=== PATIENT | female | born 1995 | race Caucasian/White ===

== ENCOUNTER 2016-08-19 17:30 | Emergency (ER) | payer OTHER ==
[~2016-08-19] VITALS: Ht 172.7 cm; Wt 47.6 kg
[~2016-08-19 17:30] MED LIST: ADV500INH INH; PERC5TAB6 PO; PROA1AER INH; XANA0.25 PO; ZOLO50TA PO
[2016-08-19] MEDS ORDERED: XANA2TAB2 PO (17:50)
[2016-08-19] MEDS ORDERED: XANA0.5T PO (20:28)
[2016-08-19] MEDS ORDERED: ALPRAZolam 0.25 MG TAB PO ONE ×2 (20:30)
[2016-08-19 20:40] VITALS: BP 110/62
== END 2016-08-19 20:41 | disposition home or self-care (01) ==
LOC: M ED 19:35
DX: F41.9 Anxiety disorder, unspecified (principal); J45.909 Unspecified asthma, uncomplicated; F33.9 Major depressive disorder, recurrent, unspecified; Z79.899 Other long term (current) drug therapy; F17.210 Nicotine dependence, cigarettes, uncomplicated

== ENCOUNTER 2017-01-06 18:34 | Emergency (ER) | payer MEDICAID, OTHER ==
[~2017-01-06] VITALS: Ht 172.7 cm; Wt 47.7 kg
[~2017-01-06 18:34] MED LIST changes: +PERC5TAB12 PO; -PERC5TAB6 PO; -PROA1AER INH; +PROAAER10 INH; +XANA0.5T PO; +XANA2TAB2 PO
[2017-01-06 18:35] VITALS: BP 134/87
[2017-01-06] MEDS ORDERED: IBUP-1022 PO (19:55)
[2017-01-06] MEDS ORDERED: ROBA500T PO (19:55)
[2017-01-06] MEDS ORDERED: ZOLO100T PO (19:55)
[2017-01-06] MEDS ORDERED: AUGM875T28 PO (19:57)
[2017-01-06] MEDS ORDERED: IBUPROFEN 600 MG TAB PO ONE (20:00)
[2017-01-06] MEDS ORDERED: METHOCARBAMOL 750 MG TAB PO ONE (20:00)
[2017-01-06] MEDS ORDERED: ALBUTEROL 90 MCG/ACT 8GM HFA INHALER INH ONE (20:00)
== END 2017-01-06 20:10 | disposition home or self-care (01) ==
LOC: M ED 18:34
DX: S40.811A Abrasion of right upper arm, initial encounter (principal); S40.812A Abrasion of left upper arm, initial encounter; S80.811A Abrasion, right lower leg, initial encounter; S80.812A Abrasion, left lower leg, initial encounter; S40.021A Contusion of right upper arm, initial encounter; S40.022A Contusion of left upper arm, initial encounter; S80.11XA Contusion of right lower leg, initial encounter; S80.12XA Contusion of left lower leg, initial encounter; S81.812A Laceration without foreign body, left lower leg, initial encounter; W16.112A Fall into natural body of water striking water surface causing other injury, initial encounter; Y92.828 Other wilderness area as the place of occurrence of the external cause; Y93.89 Activity, other specified; Y99.8 Other external cause status; J45.909 Unspecified asthma, uncomplicated; F41.9 Anxiety disorder, unspecified; F33.9 Major depressive disorder, recurrent, unspecified; F19.10 Other psychoactive substance abuse, uncomplicated; Z79.899 Other long term (current) drug therapy; Z79.51 Long term (current) use of inhaled steroids; F17.210 Nicotine dependence, cigarettes, uncomplicated

== ENCOUNTER → 2017-02-15 | Outpatient (REF) | payer MEDICAID, OTHER ==
[~2017-02-15] MED LIST changes: +AUGM875T28 PO; +IBUP-1022 PO; +ROBA500T PO; +ZOLO100T PO
== END ==
LOC: M SFHCLERA 18:23
PROVIDERS: ATTEND Nurse Practitioner Family
DX: R30.0 Dysuria (principal); J02.9 Acute pharyngitis, unspecified

== ENCOUNTER → 2017-05-08 | Outpatient (REF) | payer MEDICAID | LOC: M LAB REF 16:59 | PROVIDERS: ATTEND Family Medicine Addiction Medicine | DX: F11.21 Opioid dependence, in remission (principal); Z20.2 Contact with and (suspected) exposure to infections with a predominantly sexual mode of transmission ==

== ENCOUNTER → 2017-05-29 | Outpatient (REF) | payer MEDICAID, OTHER | LOC: M LAB REF 12:43 | DX: F11.21 Opioid dependence, in remission (principal) ==

== ENCOUNTER → 2017-06-12 | Outpatient (REF) | payer MEDICAID, OTHER ==
[2017-06-17 14:12] LABS: AMPHETAMINE SCREEN, URINE Negative ng/mL (Cutoff=1000); BARBITURATES SCREEN, URINE Negative ng/mL (Cutoff=200); BENZODIAZEPINES, URINE SCREEN Negative ng/mL (Cutoff=200); CANNABINOID SCREEN, URINE See Final Results ng/mL (Cutoff=20); CANNABINOID, URINE Positive (Cutoff=20); CARBOXY THC (GC/MS) >300 ng/mL (Cutoff=10); COCAINE SCREEN, URINE Negative ng/mL (Cutoff=300); CREATININE, URINE 216.4 mg/dL (20.0-300.0); FENTANYL URINE SCREEN Negative pg/mL (Cutoff=2000); METHADONE, URINE SCREEN Negative ng/mL (Cutoff=300); NALOXONE RESULT Positive (.); OPIATE SCREEN, URINE Negative ng/mL (Cutoff=300); OXYCODONE, SCREEN, URINE Negative ng/mL (Cutoff=100); PCP SCREEN, URINE Negative ng/mL (Cutoff=25); SPECIFIC GRAVITY, URINE 1.025 (.); URINE BUPRENORPHINE Positive (.); URINE BUPRENORPHINE Positive (Cutoff=10); URINE BUPRENORPHINE See Final Results ng/mL (Cutoff=10); URINE BUPRENORPHINE CONFIRM 684 ng/mL (Cutoff=10); URINE NORBUPRENORPHINE Positive (.); URINE NORBUPRENORPHINE CONFIRM >1000 ng/mL (Cutoff=10); pH, URINE 5.7 (4.5-8.9)
== END ==
LOC: M LAB REF 17:28
DX: F11.21 Opioid dependence, in remission (principal)

== ENCOUNTER → 2017-06-19 | Outpatient (REF) | payer MEDICAID, OTHER | LOC: M LAB REF 19:06 | DX: F11.21 Opioid dependence, in remission (principal) ==

== ENCOUNTER → 2017-06-28 | Outpatient (REF) | payer OTHER, MEDICAID | LOC: M LAB REF 19:28 | DX: F11.21 Opioid dependence, in remission (principal) ==

== ENCOUNTER → 2017-07-02 | Outpatient (REF) | payer OTHER, MEDICAID | LOC: M LAB REF 13:15 | DX: F11.21 Opioid dependence, in remission (principal) ==

== ENCOUNTER → 2017-07-03 | Outpatient (REF) | payer OTHER, MEDICAID | LOC: M LAB REF 19:27 | DX: F11.21 Opioid dependence, in remission (principal) ==

== ENCOUNTER 2018-06-23 11:40 | Emergency (ER) | payer MEDICAID, OTHER ==
[~2018-06-23] VITALS: Ht 172.7 cm; Wt 47.7 kg
[2018-06-23] MEDS ORDERED: MORPHINE 4 MG/ML 1ML VIAL/SYRINGE (J2270) IV PRN (14:00)
[2018-06-23] MEDS ORDERED: ONDANSETRON 4MG/2ML VIAL (J2405) IV ONE (14:00)
[2018-06-23] MEDS ORDERED: NS 1,000 ML IV ONE (14:00)
[2018-06-23] MEDS ORDERED: NORCO, ANEXSIA 5/325MG TABLET (HYDROcodone/ACETAMINOPHEN) PO ONE (15:00)
[2018-06-23] MEDS ORDERED: GABA600T4 PO (16:28)
[2018-06-23] MEDS ORDERED: ZOLO100T PO (16:28)
[2018-06-23] MEDS ORDERED: MACR100C43 PO (16:28)
[2018-06-23 16:44] VITALS: BP 104/70
[2018-06-23] MEDS ORDERED: VENTAER INH (16:45)
--- NOTE | 2018-06-23 18:14 | REP ---
Pelvic sonography: History: Left-sided pelvic pain. Findings: Transabdominal and transvaginal scanning are performed. Visualized bladder quintero are smooth. Uterine dimensions are 7.7 x 3.1 x 3.7 cm. Endometrial echo 0.2 cm thick. Nabothian cysts are seen. A small quantity of endocervical fluid is seen. No focal uterine mass is seen. There is a trace of fluid in the cul-de-sac. Normal right ovary is seen measuring 3.0 x 1.7 x 2.0 cm. Left ovary measures 3.9 x 1.8 x 2.0 cm. There is a 1.9 x 1.6 x 1.1 cm cyst in the left ovary consistent with a follicle. Doppler flow is normal in both ovaries. Resistive indices by Doppler are 0.44 on the right and 0.46 on the left. Impression: No significant abnormality. 1.9 cm follicle cyst left ovary. Trace of fluid in the cul-de-sac. A Nabothian cyst. Electronically Signed by Quoc Valdez MD 06/24/2018 08:07 A
== END 2018-06-23 16:46 | disposition home or self-care (01) ==
LOC: M ED 11:40
DX: N39.0 Urinary tract infection, site not specified (principal); N83.02 Follicular cyst of left ovary; Z76.0 Encounter for issue of repeat prescription; J45.909 Unspecified asthma, uncomplicated; F19.10 Other psychoactive substance abuse, uncomplicated; F41.9 Anxiety disorder, unspecified; F32.9 Major depressive disorder, single episode, unspecified; F17.210 Nicotine dependence, cigarettes, uncomplicated; Z79.899 Other long term (current) drug therapy; Z79.51 Long term (current) use of inhaled steroids

== ENCOUNTER 2018-09-13 16:17 | Inpatient (IN) | payer OTHER ==
[~2018-09-13] VITALS: Ht 172.7 cm; Wt 60.2 kg
[~2018-09-13 16:17] MED LIST changes: +GABA600T4 PO; +MACR100C43 PO; +VENTAER INH
[2018-09-13] MEDS ORDERED: NS 1,000 ML IV ONE ×3 (16:30→22:15)
[2018-09-13] MEDS ORDERED: ALBUTEROL SULFATE 2.5 MG/0.5 ML INH NEB SOLN INH ONE (16:30)
[2018-09-13] MEDS ORDERED: IPRATROPIUM 0.5MG/ALBUTEROL 2.5MG INH SOL UD 3ML (DUONEB)(J7620) NEB ONE (16:30)
[2018-09-13 16:41] LABS: HEMATOCRIT 41.8 % (36.0-47.0); HEMOGLOBIN 12.8 g/dl (12.0-15.5); MEAN CORPUSCULAR HEMOGLOBIN 28.8 pg (27.0-33.0); MEAN CORPUSCULAR HGB CONC 30.6 g/dl (32.0-36.5); MEAN CORPUSCULAR VOLUME 93.9 fl (80.0-96.0); PLATELET COUNT, AUTOMATED 335 10^3/uL (150-450); RED BLOOD COUNT 4.45 10^6/uL (4.00-5.40); WHITE BLOOD COUNT 13.7 10^3/uL (4.0-10.0)
[2018-09-13] MEDS: MAG SULF 1GM/100ML (MAG RUN) 1 GM in APPROPRIATE DILUENT 1 EA IV SCH ×2 (16:41→17:21)
[2018-09-13 16:44] LABS: ABG BASE EXCESS -7.6 (-2.0-2.0); ABG HCO3 18.3 MEQ/L (22.0-26.0); ABG O2 SATURATION 93.4 % (95.0-99.0); ABG PARTIAL PRESSURE CO2 38.4 mmHg (35.0-45.0); ABG PARTIAL PRESSURE O2 77.7 mmHg (75.0-100.0); ABG STANDARD HCO3 18.2 MEQ/L (22.0-26.0); ABG TOTAL CO2 19.4 MEQ/L (22.0-29.0); ABG pH (ARTERIAL) 7.295 UNITS (7.350-7.450)
--- NOTE | 2018-09-13 16:50 | REP ---
Chest one-view HISTORY: Shortness of breath Comparison: 06/02/2015 A small area of atelectasis or infiltrate is present in the left lower lobe. The right lung is clear. he heart is normal in size. The pulmonary vasculature is normal in appearance. Impression: Left lower lobe atelectasis or infiltrate. Electronically Signed by Vik Morales MD 09/13/2018 04:42 P
[2018-09-13] MEDS ORDERED: SUBO4MIS SL (16:51)
[2018-09-13] MEDS ORDERED: HYDR-4517 PO (16:51)
[2018-09-13] MEDS ORDERED: LORA-674 PO (16:51)
[2018-09-13] MEDS ORDERED: BREO1INH3 INH (16:51)
[2018-09-13] MEDS ORDERED: HYDR-2808 PO (16:51)
[2018-09-13 16:59] LABS: HCG, SERUM QUALITATIVE POSITIVE (NEGATIVE)
[2018-09-13 17:13] LABS: ATYPICAL LYMPH 2 % (0-5); LYMPHOCYTES 63 % (16-52); MONOCYTES 5 % (0-8); NEUTROPHILS 29 % (35-75)
[2018-09-13 17:14] LABS: PLATELET ESTIMATE NORMAL (NORMAL)
[2018-09-13 17:26] LABS: ALBUMIN 3.8 GM/DL (3.2-5.2); ALT/SGPT 51 U/L (12-78); BILIRUBIN,DIRECT < 0.1 MG/DL (0.0-0.2); BILIRUBIN,TOTAL 0.3 MG/DL (0.2-1.0); BLOOD UREA NITROGEN 10 MG/DL (7-18); CALCIUM LEVEL 8.6 MG/DL (8.5-10.1); CARBON DIOXIDE LEVEL 17 MEQ/L (21-32); CHLORIDE LEVEL 104 MEQ/L (98-107); CPK CREATINE PHOSPHOKINASE 112 U/L (26-192); CREATININE FOR GFR 0.92 MG/DL (0.55-1.30); GLOMERULAR FILTRATION RATE > 60.0 (>60); GLUCOSE, FASTING 206 MG/DL (70-100); MB/CK RELATIVE INDEX 1.07 (< OR =4); NT-PRO BNP 225 PG/ML (<125); POTASSIUM SERUM 4.4 MEQ/L (3.5-5.1); SODIUM LEVEL 138 MEQ/L (136-145); THYROID STIMULATING HORMONE 0.869 uIU/ML (0.358-3.740); THYROXINE (T4) 10.9 UG/DL (4.5-12.0); TOTAL PROTEIN 7.5 GM/DL (6.4-8.2); TROPONIN I < 0.02 NG/ML (< 0.10)
[2018-09-13 17:35] LABS: INFLUENZA A AMPLIFICATION NEGATIVE (NEGATIVE); INFLUENZA B AMPLIFICATION NEGATIVE (NEGATIVE)
[2018-09-13 18:06] LABS: HCG, SERUM QUANTITATIVE 35 MIU/ML
[2018-09-13] MEDS ORDERED: GABA600T4 PO (18:26)
[2018-09-13] MEDS ORDERED: SERT-138 PO (18:27)
[2018-09-13] MEDS ORDERED: IPRATROPIUM 0.5MG/ALBUTEROL 2.5MG INH SOL UD 3ML (DUONEB)(J7620) NEB PRN (19:00)
[2018-09-13 19:01] LABS: AMPHETAMINES LEVEL URINE NEGATIVE (NEGATIVE); BARBITURATES URINE NEGATIVE (NEGATIVE); BENZODIAZEPINES URINE NEGATIVE (NEGATIVE); CANNABINOIDS URINE POSITIVE (NEGATIVE); COCAINE METABOLITE URINE NEGATIVE (NEGATIVE); METHADONE URINE NEGATIVE (NEGATIVE); OPIATES URINE POSITIVE (NEGATIVE); PHENCYCLIDINE URINE NEGATIVE (NEGATIVE)
[2018-09-13] MEDS: ALBUTEROL SULFATE 2.5 MG/0.5 ML INH NEB SOLN NEB SCH (19:03)
[2018-09-13] MEDS: NS 1,000 ML IV SCH (19:37)
[2018-09-13] MEDS: methylPREDNISolone INJ 40 MG/1 ML VIAL (J2920) IV SCH (20:00)
--- NOTE | 2018-09-13 20:29 | REPVR ---
EXAM: US First Trimester, Transabdominal EXAM DATE/TIME: 09/13/2018 5:48 PM CLINICAL HISTORY: 23 years old, female; complicated by abdominal or pelvic pain; Lower; First trimester; Gestational age or lmp: 08/16/18; ; Additional info: Respiratory failure/ abdominal pain/lactic acidosis TECHNIQUE: Imaging protocol: Real-time transabdominal obstetrical ultrasound of the maternal pelvis and a first trimester , less than 14 weeks 0 days, with image documentation. COMPARISON: No relevant prior studies available. FINDINGS: MATERNAL: Uterus: The uterus measures 9.3 cm in its cephalocaudad dimension and 5.2 x 4.8 cm in its AP and lateral dimensions transabdominal. The uterus measures 9.5 cm in its cephalocaudad dimension and 4.1 x 5.1 cm in its AP and lateral dimensions. The endometrium measures 21 mm transabdominal and 13 mm transvaginal. No intrauterine gestational sac. Cervix: Unremarkable. Right adnexa: The right ovary measures 2.5 x 3.1 x 2.9 cm and demonstrates blood flow. Left adnexa: The left ovary measures 2.1 x 2.8 x 1.4 cm and demonstrates blood flow. Intraperitoneal: No intraperitoneal free fluid. IMPRESSION: 1. Thickened endometrium with no gestational sac seen. Findings may reflect recent spontaneous AB or very early intrauterine gestation. Ectopic with decidual reaction is not excluded. Serial beta hCG levels may be of benefit for further evaluation. 2. Otherwise negative pelvic sonogram. Electronically signed by: Meet Bess On 09/13/2018 20:29:11 PM
[2018-09-13] MEDS ORDERED: KETOROLAC 30 MG/ML VIAL (J1885) IV SCH (22:00)
[2018-09-13] MEDS ORDERED: ACETAMINOPHEN TAB 650MG DOSE (2X325MG) PO PRN (22:15)
--- NOTE | 2018-09-13 22:53 | HPEPDOC ---
General Date of Admission 09/13/18 Chief Complaint The patient is a 23-year-old female admitted with a reason for visit of Resp Distress. Source: Patient, RN/, Old records History of Present Illness 23 year old female with PMH of asthma, depression/anxiety , panic attack, narcotic use disorder had a relapse of her today and used a bag of heroin earlier in the morning. She had not taken any heroin for he past 1 month, has been using suboxone form friends and used hydrocodone yesterday. She says she has a surgery scheduled for later in september for endometriosis and she wanted to come off the Suboxone. However today she did heroin. She then came to her mother's house where she was exposed to a cat that she is allergic to. After that she started having severe SOB chest tightness, panic attack and could not take in any breath and passed out. EMS was called by her mom . EMS found her to be poorly responsive with decreased respirations, pale, so had to umbu bag her. She was given narcan in field. By the time she was ekaterina to the ED she was awke but in an asthma extremis. She was given albuterol, magnesium, duonebs with improvement of her symptoms. Her labs showed severe lactic acidosis of 9.8 and ABG showed acidosis with ph of 7.29, pco2 of 38. pateint was admitted for severe asthma exacerbation with severe lactic acidosis and possible narcotic overdose. She was also found to be . Home Medications Scheduled Fluticasone/Vilanterol (Breo Ellipta 200-25 Mcg INH) 1 Each Blst.w.dev, 1 PUFF INH DAILY, (Reported) Gabapentin (Gabapentin) 600 Mg Tablet, 600 MG PO BID, (Reported) Loratadine (Loratadine) 10 Mg Tablet, 10 MG PO DAILY, (Reported) Sertraline HCl (Sertraline HCl) 100 Mg Tablet, 200 MG PO QHS, (Reported) Scheduled PRN Albuterol Sulfate (Proair Hfa) 108 Mcg/Act Aer, 2 PUFFS INH Q4H PRN for SHORTNESS OF BREATH, (Reported) Allergies Coded Allergies: No Known Allergies (Unverified , 09/13/18) Past Medical History Medical History asthma, depression/anxiety , panic attack, substance use disorder, endometriosis. Ovarian cysts Surgical History right eye cataract surgery at the age of 7years. Social History * Smoker: current smoker, less than 1 pack/day Alcohol: occationally Drugs: heroin, other (subaxone, hydocodone) A-FIB/CHADSVASC A-FIB History Current/History of A-Fib/PAF?: No Review of Systems Constitutional: Denies: Chills, Fever, Night Sweats Eyes: Denies: Pain, Vision change ENT: Reports: Sinus Congestion; Denies: Head Aches, Ear Pain, Dysphagia Skin: Denies: Rash, Lesions, Breakdown Pulmonary: Reports: Dyspnea; Denies: Cough, Pleuritic Chest Pain Cardiovascular: Reports: Chest Pain, Palpitations, Orthopnea, Lt Headedness Gastrointestinal: Denies: Nausea, Vomiting, Abdominal Pain, Diarrhea Genitourinary: Denies: Dysuria, Frequency, Incontinence, Retention Psych: Reports: Anxiety, Depression Physical Examination General Exam: Positive: Alert, Cooperative, No Acute Distress Eye Exam: Positive: Conjunctiva & lids normal, EOMI; Negative: Sclera icteric ENT Exam: Positive: Atraumatic, Mucous membr. moist/pink, Pharynx Normal Neck Exam: Positive: Supple; Negative: JVD, thyromegaly Chest Exam: Positive: Rhonchi (few distant ronchi and crackles. ), Diminished Heart Exam: Positive: Tachycardic, Regular Rhythm, Normal S1, Normal S2; Negative: Rate Normal, Bradycardic, Irregular Rhythm, Gallops, Murmurs, Rubs, Other Telemetry: Positive: Sinus, Tachycardia Abdomen Exam: Positive: Normal bowel sounds, Soft; Negative: Tenderness, Hepatospenomegaly Extremity Exam: Negative: Clubbing, Cyanosis, Edema Vital Signs Vital Signs Date Time Temp Pulse Resp B/P (MAP) Pulse Ox O2 Delivery O2 Flow Rate FiO2 09/13/18 17:47 112 22 100 09/13/18 17:30 92/54 (67) 09/13/18 17:01 99.1 Nasal Cannula 6.0 Laboratory Data Labs 24H Laboratory Tests 2 09/13/18 16:33: White Blood Count 13.7H, Red Blood Count 4.45, Hemoglobin 12.8, Hematocrit 41.8, Mean Corpuscular Volume 93.9, Mean Corpuscular Hemoglobin 28.8, Mean Corpuscular Hemoglobin Concent 30.6L, Red Cell Distribution Width 13.2, Platelet Count 335, Lymphocytes # (Auto) , Nucleated Red Blood Cells % (auto) 0.0, Neutrophils 29L, Band Neutrophils 1, Lymphocytes (Manual) 63H, Monocytes (Manual) 5, Atypical Lymphocytes 2, Platelet Estimate NORMAL, Red Blood Cell Morphology NORMAL, Anion Gap 17H, Glomerular Filtration Rate > 60.0, Lactic Acid Level 9.8*H, Calcium Level 8.6, Aspartate Amino Transf (AST/SGOT) 55H, Alanine Aminotransferase (ALT/SGPT) 51, Alkaline Phosphatase 117, Total Bilirubin 0.3, Direct Bilirubin < 0.1, Total Creatine Kinase 112, Creatine Kinase MB 1.0, Creatine Kinase MB Relative Index 1.07, Troponin I < 0.02, HG-Scn-Y-Type Natriuretic Peptide 225H, Total Protein 7.5, Albumin 3.8, Albumin/Globulin Ratio 1.03, Thyroid Stimulating Hormone (TSH) 0.869, Thyroxine (T4) 10.9, Human Chorionic Gonadotropin, Qual POSITIVEA, Influenza Type A (RT-PCR) NEGATIVE, Influenza Type B (RT-PCR) NEGATIVE 09/13/18 16:35: Blood Gas Bicarbonate Standard 18.2L, Arterial Blood pH 7.295L, Arterial Blood Partial Pressure CO2 38.4, Arterial Blood Partial Pressure O2 77.7, Arterial Blood Total CO2 19.4L, Arterial Blood HCO3 18.3L, Arterial Blood Base Excess - 7.6L, Arterial Blood Oxygen Saturation 93.4L CBC/BMP Laboratory Tests 09/13/18 16:33 Red Blood Count 4.45, Mean Corpuscular Volume 93.9, Mean Corpuscular Hemoglobin 28.8, Mean Corpuscular Hemoglobin Concent 30.6 L, Red Cell Distribution Width 13.2, Lymphocytes # (Auto) Microbiology Microbiology 09/13/18 Blood Culture, Received Pending Assessment/Plan 23 year old female with PMH of asthma, depression/anxiety , panic attack, narcotic use disorder had a relapse of her today and used a bag of heroin earlier in the morning. She had not taken any heroin for he past 1 month, has been using suboxone form friends and used hydrocodone yesterday. She says she has a surgery scheduled for later in september for endometriosis and she wanted to come off the Suboxone. However today she did heroin. She then came to her mother's house where she was exposed to a cat that she is allergic to. After that she started having severe SOB chest tightness, panic attack and could not take in any breath and passed out. EMS was called by her mom . EMS found her to be poorly responsive with decreased respirations, pale, so had to umbu bag her. She was given narcan in field. By the time she was ekaterina to the ED she was awke but in an asthma extremis. She was given albuterol, magnesium, duonebs with improvement of her symptoms. Her labs showed severe lactic acidosis of 9.8 and ABG showed acidosis with ph of 7.29, pco2 of 38. pateint was admitted for severe asthma exacerbation with severe lactic acidosis and possible narcotic overdose. Severe asthma exacerbation will continue with albuterol, methylprednisone telemetry monitoring Patient does not have any inhalers. Ran out and cannot get any new ones as she does not have a PMD. When she is at her mothers house she uses her mothers inhaloR Breo. Severe lactic acidosis due to hypoxia and increased work of breathing from asthma extremis. will continue on ivf. Heroin use Patient had been off heroin for the past month. Had some earlier today . As per her not a lot and it was way before her attack s o she does not think that she overdosed. recieved narcan in field. If any signs of drowsiness and lethargy will again give narcan. Newly diagnosed this admission. She has had 3 miscarriges in the past. DVT prophylaxis ordered. Plan / VTE VTE Prophylaxis Ordered?: Yes MARIPOSA LEO MD Sep 13, 2018 18:01
[2018-09-14] MEDS: ALBUTEROL SULFATE 2.5 MG/0.5 ML INH NEB SOLN NEB SCH ×2 (01:05→08:00)
[2018-09-14] MEDS: SYMBICORT 80/4.5MCG INHALER 6GM INH SCH ×2 (01:06→08:04)
[2018-09-14] MEDS: methylPREDNISolone INJ 40 MG/1 ML VIAL (J2920) IV SCH ×2 (02:00→08:48)
[2018-09-14] MEDS: NS 1,000 ML IV SCH (06:14)
[2018-09-14 06:15] VITALS: BP 115/86
[2018-09-14] MEDS ORDERED: PROAAER10 INH (10:15)
[2018-09-14] MEDS ORDERED: PRED20TA PO (10:15)
[2018-09-14] MEDS ORDERED: BREO1INH3 INH (10:15)
--- NOTE | 2018-09-14 13:58 | DS.PDOC ---
Discharge Summary General Date of Admission Sep 13, 2018 at 18:44 Date of Discharge 09/14/18 Discharge Summary PROCEDURES PERFORMED DURING STAY: [None]. DISCHARGE DIAGNOSES: Severe Asthma exacerbation Heroin use Narcotic use Newly diagnosed Anxiety/depression COMPLICATIONS/CHIEF COMPLAINT: Asthma Exacerbation, Heroin Use. HISTORY OF PRESENT ILLNESS: See history and physical HOSPITAL COURSE: 23 year old female with PMH of asthma, depression/anxiety , panic attack, narcotic use disorder had a relapse of her today and used a bag of heroin earlier in the morning. She had not taken any heroin for he past 1 month, has been using suboxone form friends and used hydrocodone yesterday. She says she has a surgery scheduled for later in september for endometriosis and she wanted to come off the Suboxone. However today she did heroin. She then came to her mother's house where she was exposed to a cat that she is allergic to. After that she started having severe SOB chest tightness, panic attack and could not take in any breath and passed out. EMS was called by her mom . EMS found her to be poorly responsive with decreased respirations, pale, so had to umbu bag her. She was given narcan in field. By the time she was ekaterina to the ED she was awke but in an asthma extremis. She was given albuterol, magnesium, duonebs with improvement of her symptoms. Her labs showed severe lactic acidosis of 9.8 and ABG showed acidosis with ph of 7.29, pco2 of 38. patient was admitted for severe asthma exacerbation with severe lactic acidosis and possible narcotic overdose. Severe asthma exacerbation resolved. will continue albuterol and breo, renewals sent to pharmacy short course of prednisone. Does not have PMD will set one up for her in [facility] as per her request. Severe lactic acidosis with acidemia. due to hypoxia and increased work of breathing from asthma extremis. improved. Heroin use intermittent with other narcotics in between advised that this behaviour will be detrimental to her . Positive HCG this admission. She has had 3 miscarriages in the past. Pelvic US showed thickened endometrium no gestational sac seen may be too early. Ectopic with decidual reaction not excluded. advised to schedule follow up with her OB- [facility] DISCHARGE MEDICATIONS: Please see below. ALLERGIES: Please see below. PHYSICAL EXAMINATION ON DISCHARGE: VITAL SIGNS: Please see below. General Exam: Positive: Alert, Cooperative, No Acute Distress Eye Exam: Positive: Conjunctiva & lids normal, EOMI; Negative: Sclera icteric ENT Exam: Positive: Atraumatic, Mucous membr. moist/pink, Pharynx Normal Neck Exam: Positive: Supple; Negative: JVD, thyromegaly Chest Exam: Clear to auscultation Heart Exam: Positive: Tachycardic, Regular Rhythm, Normal S1, Normal S2; Negative: Rate Normal, Bradycardic, Irregular Rhythm, Gallops, Murmurs, Rubs, Other Telemetry: Positive: Sinus, Tachycardia Abdomen Exam: Positive: Normal bowel sounds, Soft; Negative: Tenderness, Hepatospenomegaly Extremity Exam: Negative: Clubbing, Cyanosis, Edema LABORATORY DATA: Please see below. ACTIVITY: [As tolerated]. DIET: As tolerated DISPOSITION: 01 Home, Self-Care. DISCHARGE INSTRUCTIONS: New PCP will be arranged and follow up in 1 to 2 weeks. Follow up with [facility] Follow up blood cultures. DISCHARGE CONDITION: [Stable]. TIME SPENT ON DISCHARGE: Greater than 30 minutes. Vital Signs/I&Os Vital Signs Date Time Temp Pulse Resp B/P (MAP) Pulse Ox O2 Delivery O2 Flow Rate FiO2 09/14/18 06:15 97.9 78 20 115/86 (96) 18 Room Air 09/13/18 17:01 6.0 I&O- Last 24 Hours up to 6 AM 09/14/18 06:00 Intake Total 1200 ml Balance 1200 ml Laboratory Data Labs 24H Laboratory Tests 2 09/13/18 16:33: White Blood Count 13.7H, Red Blood Count 4.45, Hemoglobin 12.8, Hematocrit 41.8, Mean Corpuscular Volume 93.9, Mean Corpuscular Hemoglobin 28.8, Mean Corpuscular Hemoglobin Concent 30.6L, Red Cell Distribution Width 13.2, Platelet Count 335, Lymphocytes # (Auto) , Nucleated Red Blood Cells % (auto) 0.0, Neutrophils 29L, Band Neutrophils 1, Lymphocytes (Manual) 63H, Monocytes (Manual) 5, Atypical Lymphocytes 2, Platelet Estimate NORMAL, Red Blood Cell Morphology NORMAL, Anion Gap 17H, Glomerular Filtration Rate > 60.0, Lactic Acid Level 9.8*H, Calcium Level 8.6, Aspartate Amino Transf (AST/SGOT) 55H, Alanine Aminotransferase (ALT/SGPT) 51, Alkaline Phosphatase 117, Total Bilirubin 0.3, Direct Bilirubin < 0.1, Total Creatine Kinase 112, Creatine Kinase MB 1.0, Creatine Kinase MB Relative Index 1.07, Troponin I < 0.02, TM-Fsh-H-Type Natriuretic Peptide 225H, Total Protein 7.5, Albumin 3.8, Albumin/Globulin Ratio 1.03, Thyroid Stimulating Hormone (TSH) 0.869, Thyroxine (T4) 10.9, Human Chorionic Gonadotropin, Qual POSITIVEA, Human Chorionic Gonadotropin, Quant 35, Influenza Type A (RT-PCR) NEGATIVE, Influenza Type B (RT-PCR) NEGATIVE 09/13/18 16:35: Blood Gas Bicarbonate Standard 18.2L, Arterial Blood pH 7.295L, Arterial Blood Partial Pressure CO2 38.4, Arterial Blood Partial Pressure O2 77.7, Arterial Blood Total CO2 19.4L, Arterial Blood HCO3 18.3L, Arterial Blood Base Excess - 7.6L, Arterial Blood Oxygen Saturation 93.4L 09/13/18 18:23: Urine Amphetamines Screen NEGATIVE, Urine Benzodiazepines Screen NEGATIVE, Urine Opiates Screen POSITIVEH, Urine Methadone Screen NEGATIVE, Urine Barbiturates Screen NEGATIVE, Urine Phencyclidine Screen NEGATIVE, Urine Cocaine Metabolite Screen NEGATIVE, Urine Cannabinoids Screen POSITIVEH 09/13/18 21:09: Lactic Acid Followup at 4 Hours 3.2*H CBC/BMP Laboratory Tests 09/13/18 16:33 Red Blood Count 4.45, Mean Corpuscular Volume 93.9, Mean Corpuscular Hemoglobin 28.8, Mean Corpuscular Hemoglobin Concent 30.6 L, Red Cell Distribution Width 13.2, Lymphocytes # (Auto) Microbiology Microbiology 09/13/18 Blood Culture, Received Pending 09/13/18 Blood Culture, Received Pending Discharge Medications Scheduled Fluticasone/Vilanterol (Breo Ellipta 200-25 Mcg INH) 1 Each Blst.w.dev, 1 PUFF INH DAILY Gabapentin (Gabapentin) 600 Mg Tablet, 600 MG PO BID, (Reported) Loratadine (Loratadine) 10 Mg Tablet, 10 MG PO DAILY, (Reported) Prednisone (Prednisone) 20 Mg Tablet, 20 MG PO DAILY Sertraline HCl (Sertraline HCl) 100 Mg Tablet, 200 MG PO QHS, (Reported) Scheduled PRN Albuterol Sulfate (Proair Hfa) 108 Mcg/Act Aer, 2 PUFFS INH Q4H PRN for SHORTNESS OF BREATH Allergies Coded Allergies: No Known Allergies (Unverified , 09/13/18) MARIPOSA LEO MD Sep 14, 2018 13:58
[2018-09-15 10:35] LABS: HEPATITIS B SURFACE ANTIGEN NEGATIVE (NEGATIVE)
[2018-09-15 11:02] LABS: HEPATITIS B CORE ANTIBODY IGM NEGATIVE (NEGATIVE)
[2018-09-15 11:04] LABS: HEPATITIS A ANTIBODY IGM NEGATIVE (NEGATIVE)
[2018-09-15 11:11] LABS: HEPATITIS C VIRUS ABY INDEX > 11.0 INDEX (<0.8)
--- NOTE | 2018-09-15 14:28 | ECGEPIP ---
Stationary ECG Study [facility] - ED Test Date: 2018-09-13 Pat Name: MARTHA BAUM Department: Room: [place] [address] Gender: F Ticket Worker: SHAHRAM : [id number] Requested By: Erlin Valadez Order Number: [id number] Reading MD: Shaheen Hawley Measurements Intervals [place] Rate: 115 P: 71 ND: 155 QRS: 87 QRSD: 83 T: 46 QT: 297 QTc: 412 Interpretive Statements SINUS TACHYCARDIA Nonspecific ST-T wave abnormalities Rate decreased from tracing done 06-02-2015 Electronically Signed On 09-15-2018 14:28:02 EDT by Shaheen Hawley
== END 2018-09-14 10:31 | disposition home or self-care (01) | DRG 141 ==
LOC: M ED 16:17 → EDBD 16:17 → M ED INP 18:44
PROVIDERS: ADMIT Internal Medicine Nephrology; ATTEND Internal Medicine Nephrology
DX: J45.901 Unspecified asthma with (acute) exacerbation (principal); E87.2 Acidosis; F41.9 Anxiety disorder, unspecified; F32.9 Major depressive disorder, single episode, unspecified; F11.90 Opioid use, unspecified, uncomplicated; Z79.899 Other long term (current) drug therapy; F17.200 Nicotine dependence, unspecified, uncomplicated

== ENCOUNTER → 2018-12-31 | Outpatient (REF) | payer OTHER, MEDICAID ==
[~2018-12-31] MED LIST changes: +BREO1INH3 INH; +HYDR-2808 PO; +HYDR-4517 PO; +LORA-674 PO; +PRED20TA PO; +SERT-138 PO; +SUBO4MIS SL
== END ==
LOC: M LAB REF 12:26
PROVIDERS: ATTEND Family Medicine Addiction Medicine
DX: R30.0 Dysuria (principal)

== ENCOUNTER → 2019-01-07 | Outpatient (REF) | payer OTHER, MEDICAID | LOC: M LAB REF 19:08 | PROVIDERS: ATTEND Family Medicine Addiction Medicine | DX: R30.0 Dysuria (principal) ==